=== PATIENT | female | born 1985 | race Caucasian/White ===

== ENCOUNTER → 2016-09-14 | Outpatient (CLI) | payer BC ==
[~2016-09-14] MED LIST: AGM875 PO; BCPILLS PO
--- NOTE | 2016-09-14 11:18 | DIAGNOSTIC IMAGING REPORT ---
LEFT SHOULDER MIN 2 VIEWS CLINICAL HISTORY: Bilateral shoulder pain. No known injury. COMPARISON: None FINDINGS: A 5 mm sclerotic focus projects over the left humeral head. This may reflect a bone island. Alignment of the left shoulder is anatomic. No fracture or suspicious lesion is identified. Joint spaces are preserved. IMPRESSION: No significant abnormality of the left shoulder. Electronically signed by: Real Ferguson M.D. 09/14/2016 11:17 AM Dictated Date/Time: 09/14/2016 11:16 AM
--- NOTE | 2016-09-14 11:19 | DIAGNOSTIC IMAGING REPORT ---
RIGHT SHOULDER MIN 2 VIEWS CLINICAL HISTORY: Bilateral shoulder pain. COMPARISON: None FINDINGS: Alignment of the right shoulder is anatomic. There is no fracture or suspicious lesion. Joint spaces are preserved. Subacromial space appears preserved. IMPRESSION: No abnormality of the right shoulder. Electronically signed by: Real Ferguson M.D. 09/14/2016 11:18 AM Dictated Date/Time: 09/14/2016 11:17 AM
== END | disposition home or self-care (01) ==
LOC: C.RDSM 10:58
PROVIDERS: ATTEND Physician Assistant
DX: M25.511 Pain in right shoulder (principal)